=== PATIENT | female | born 1955 | race Caucasian/White ===

== ENCOUNTER 2024-04-08 08:01 | Inpatient (IN) | payer MEDICARE, OTHER ==
[~2024-04-08] VITALS: Ht 167.6 cm; Wt 86.7 kg
[2024-04-08 08:45] LABS: Basophils # (auto) 0 10 ^3/uL (0-0.2); Basophils % (auto) 0.6 % (0.0-2.0); Eosinophils # (auto) 0 10 ^3/uL (0-0.8); Hematocrit 43.1 % (36.0-46.0); Lymphocytes # (auto) 0.9 10 ^3/uL (0.4-5.4); Lymphocytes % (auto) 19.4 % (10.0-50.0); Mean Corpuscular Hemoglobin 32.7 pg (28.0-32.0); Mean Corpuscular Hgb Conc. 34.7 g/dL (32.0-36.0); Mean Corpuscular Volume 94.1 fL (80.0-100.0); Monocytes # (auto) 0.5 10 ^3/uL (0-1.3); Monocytes % (auto) 11.2 % (0.0-12.0); Neutrophils # (auto) 3.1 10 ^3/uL (1.6-8.6); Neutrophils % (auto) 67.8 % (37.0-80.0); Nucleated Red Blood Cells % 0.1 %; Platelet Count (auto) 179 10^3/uL (140-450); Red Blood Cells 4.59 10^6/uL (4.0-5.20); Red Cell Distribution Width 13.6 % (11.8-14.3); White Blood Cell 4.6 10^3/uL (4.4-10.8)
[2024-04-08 09:26] LABS: Alanine Aminotransferase 28 U/L (7-40); Albumin 4.6 g/dL (3.2-4.8); Alkaline Phosphatase 131 U/L (46-116); Anion Gap 8 (5-15); Aspartate Aminotransferase 30 U/L (13-40); Bilirubin, Total 0.9 mg/dL (0.2-1.0); Blood Urea Nitrogen 26 mg/dL (9-23); Carbon Dioxide 23 mmol/L (20-30); Chloride 106 mmol/L (98-107); Glucose 102 mg/dL (74-106); Potassium 4.2 mmol/L (3.5-5.1); Sodium 137 mmol/L (136-145); Total Protein 7.2 g/dL (5.7-8.2)
[2024-04-08] MEDS: ASPirin 81 mg TAB PO ONE (10:48)
[2024-04-08] MEDS: NITROGLYCERIN 2% OINT 1GM PKG TD ONE (10:49)
[2024-04-08] MEDS: KETOROLAC TROMETH 30 MG/ML 1ML VIAL IV ONE (10:50)
[2024-04-08] MEDS: KETOROLAC TROMETH 30 MG/ML 1ML VIAL IM ONE (11:14)
[2024-04-08] MEDS ORDERED: ACETAMINOPHEN 325 MG TAB PO PRN (12:00)
[2024-04-08] MEDS ORDERED: HYDROmorphone HCL 2 MG/ML VL/or syr IV PRN (12:00)
[2024-04-08] MEDS ORDERED: ONDANSETRON HCL 4 MG/2 ML VIAL IV PRN (12:00)
[2024-04-08] MEDS ORDERED: MORPHINE SULFATE INJ 2 MG/ml SYRG IV PRN (12:00)
[2024-04-08] MEDS: LACTATED RINGER'S 1,000 ML IV ONE (12:00)
[2024-04-08] MEDS ORDERED: NITROGLYCERIN 0.4 MG SL TAB SL PRN (12:00)
[2024-04-08] MEDS: IOHEXOL 350 MG/ML 100ML IJ ONE (12:28)
[2024-04-08] MEDS: HYDROcodone-ACET 5/325MG TAB PO PRN (13:35)
[2024-04-08 13:55] VITALS: PULSE 105; RESP 20; O2SAT 96
[2024-04-08] MEDS: SODIUM CHLOR 0.9% PF (SALINE LOCK) 10ML VIAL/SYR IV SCH (14:14)
[2024-04-08 14:59] LABS: LDL Cholesterol 160 mg/dL (< 100); Triglycerides 153 mg/dL (< 150)
[2024-04-08 15:01] LABS: Cholesterol 234 mg/dL (< 200); HDL Cholesterol 36 mg/dL (40-59)
[2024-04-08] MEDS: CYCLOBENZAPRINE HCL 10 MG TAB PO PRN (18:13)
[2024-04-08 20:00] VITALS: PULSE 85; O2SAT 0
[2024-04-08 21:00] VITALS: BP 117/74; PULSE 65; RESP 19; TEMP 97.9; O2SAT 95
[2024-04-08 21:13] LABS: INR 1.13 (0.9-1.15); Partial Thromboplastin Time 27.8 SEC (24.5-34.5); Prothrombin Time 11.9 sec (9.3-11.8)
[2024-04-08] MEDS: ATORVASTATIN 20 MG TAB PO SCH (21:32)
[2024-04-09] VITALS (7 sets, daily range): BP systolic 98–152; BP diastolic 57–108; PULSE 61–84; RESP 17–18; TEMP 97.7–98.1; O2SAT 0–95
[2024-04-09 07:20] LABS: Basophils # (auto) 0 10 ^3/uL (0-0.2); Basophils % (auto) 0.7 % (0.0-2.0); Eosinophils # (auto) 0.1 10 ^3/uL (0-0.8); Hematocrit 38.7 % (36.0-46.0); Hemoglobin 13.6 g/dL (12.2-16.2); Lymphocytes % (auto) 26.2 % (10.0-50.0); Mean Corpuscular Hemoglobin 33.3 pg (28.0-32.0); Mean Corpuscular Hgb Conc. 35.2 g/dL (32.0-36.0); Mean Corpuscular Volume 94.8 fL (80.0-100.0); Monocytes # (auto) 0.5 10 ^3/uL (0-1.3); Monocytes % (auto) 14.2 % (0.0-12.0); Neutrophils % (auto) 54.9 % (37.0-80.0); Nucleated Red Blood Cells % 0.2 %; Platelet Count (auto) 156 10^3/uL (140-450); Red Blood Cells 4.08 10^6/uL (4.0-5.20); Red Cell Distribution Width 13.1 % (11.8-14.3); White Blood Cell 3.6 10^3/uL (4.4-10.8)
[2024-04-09 07:49] LABS: Alanine Aminotransferase 24 U/L (7-40); Albumin 4.1 g/dL (3.2-4.8); Alkaline Phosphatase 112 U/L (46-116); Anion Gap 5 (5-15); Aspartate Aminotransferase 26 U/L (13-40); BUN/Creatinine Ratio 27.3 (10.0-20.0); Blood Urea Nitrogen 18 mg/dL (9-23); Calcium 9.4 mg/dL (8.7-10.4); Carbon Dioxide 28 mmol/L (20-30); Chloride 106 mmol/L (98-107); Glucose 83 mg/dL (74-106); Potassium 4.2 mmol/L (3.5-5.1); Sodium 139 mmol/L (136-145)
[2024-04-09 07:50] LABS: Total Protein 6.5 g/dL (5.7-8.2)
[2024-04-09] MEDS: ENOXAPARIN SOD 40 MG/0.4 ML SYRINGE SC SCH (10:00)
== END 2024-04-09 17:45 | disposition home or self-care (01) | DRG 913 ==
LOC: ER 08:01 → EDBD 08:01 → TELE 12:02 → TELE-WESTW 19:40
PROVIDERS: ADMIT Internal Medicine; ATTEND Internal Medicine Geriatric Medicine
DX: S29.8XXA Other specified injuries of thorax, initial encounter (principal); I21.A1 Myocardial infarction type 2; M54.2 Cervicalgia; S19.80XA Other specified injuries of unspecified part of neck, initial encounter; E78.5 Hyperlipidemia, unspecified; M51.26 Other intervertebral disc displacement, lumbar region; K76.89 Other specified diseases of liver; Z90.710 Acquired absence of both cervix and uterus; Z90.49 Acquired absence of other specified parts of digestive tract; V89.2XXA Person injured in unspecified motor-vehicle accident, traffic, initial encounter; Y92.410 Unspecified street and highway as the place of occurrence of the external cause; Y99.8 Other external cause status; R07.89 Other chest pain; Y92.488 Other paved roadways as the place of occurrence of the external cause
CPT/HCPCS: 36415; 70450; 71250; 71275; 72125; 74176; 80053; 80061; 83036; 83735; 84443; 84484; 85025; 85610; 85730; 93306; 96360; 96372; G0378; J1885